=== PATIENT | female | born 1980 | race Caucasian/White ===

== ENCOUNTER 2016-07-21 06:31 | Day surgery (SDC) | payer OTHER, MEDICAID ==
[~2016-07-21] VITALS: Ht 165.1 cm; Wt 81.9 kg
[2016-07-21 07:19] VITALS: Ht 165.1 cm; Wt 81.9 kg
[2016-07-21] MEDS ORDERED: Q VAR (07:25)
[2016-07-21] MEDS ORDERED: PRO AIR (07:25)
[2016-07-21 07:49] VITALS: BP 134/74; PULSE 74; RESP 16
[2016-07-21] MEDS ORDERED: MIDAZOLAM 1 MG/ML 2 ML INJ ONE ×2 (08:08)
[2016-07-21] MEDS ORDERED: FENTAnyl 50 MCG/ML VIAL ONE (08:08)
[2016-07-21 08:34] VITALS: BP 117/76; RESP 20
--- NOTE | 2016-07-21 09:58 | GILP ---
DATE OF PROCEDURE: 07/21/2016 NAME OF PROCEDURE: Esophagogastroduodenoscopy and biopsy. SURGEON: Tejal Burns MD PREOPERATIVE DIAGNOSIS: Abdominal pain. POSTOPERATIVE DIAGNOSES: 1. Bile reflux gastritis. 2. Gastric mucosal biopsies were positive for Helicobacter pylori infection. INDICATION FOR THE PROCEDURE: Ms. More Millard is a 36-year-old female patient who had upper abdo andrew pain, not responding to therapy. The patient was scheduled for endoscopic examination for fur ther evaluation. The procedure and possible complications were well explained to the patient, she understood and cons ented to the procedure. DESCRIPTION OF PROCEDURE: Under the influence of fentanyl and Versed, the gastroscope was carefully introduced into the esophagus and under direct vision, it was advanced to the stomach and through t he pylorus into the duodenal bulb and descending duodenum. FINDINGS: ESOPHAGUS: The mucosa was normal. STOMACH: The patient had bile reflux gastritis. Gastric mucosal biopsies were taken and it was pos itive for Helicobacter pylori infection. DUODENUM: Normal. The patient tolerated the procedure very well and there was no complication from the procedure. At the end of the procedure, she was awake with stable vital signs and she was discharged home to the replaced by [facility] of her family. IMPRESSION: 1. Bile reflux gastritis. 2. Gastric mucosal biopsies were taken for H. pylori test and it was positive for Helicobacter pylo ri infection. PLAN: 1. Zantac 300 mg p.o. b.i.d. for 14 days. 2. Doxycycline 100 mg p.o. b.i.d. for 14 days. 3. Flagyl 500 mg p.o. b.i.d. for 14 days. 4. Pepto-Bismol 2 tablets p.o. q.i.d. for 14 days. Dictated By: TEJAL BURNS MD GD/NTS Conf#: [id number] DID#: [id number] CC: TEJAL BURNS MD;*EndCC*
--- NOTE | 2016-07-22 11:32 | CONS ---
DATE OF ADMISSION: 07/21/2016 DATE OF CONSULTATION: Dear Dr. Guzman: I thank you very much for this kind referral. HISTORY OF PRESENT ILLNESS: Ms. More Millard is a 36-year-old female patient who has been referred to me for further evaluation of abdominal pain. The patient complains of upper abdominal pain, not responding to symptomatic medical therapy. There is no past history of peptic ulcer disease. She is not taking any nonsteroidal anti-inflammatory agents. Her appetite has been good, and there is no history of significant weight loss. The patient is status post cholecystectomy. She does not have any fever, chills or jaundice. The patient was noted to have fatty liver. Patient had blood tests done and they were all normal. Liver enzymes are normal. The patient had abdominal ultrasound and other than fatty liver, no other abnormality was detected. The patient denies any change in the bowel habit or rectal bleeding. She is not a hypertensive or diabetic. She does not have any heart disease. She has history of bronchial asthma. There is no history of kidney disease. SOCIAL HISTORY: She is a nonsmoker. She does not abuse alcohol. FAMILY HISTORY: Negative for gastrointestinal tract neoplasm. ALLERGIES: THERE IS NO HISTORY OF SIGNIFICANT DRUG ALLERGY. MEDICATIONS: 1. ProAir. PHYSICAL EXAMINATION: VITAL SIGNS: She is 5 feet 5 inches tall and she weighs 177 pounds. HEART: Examination of the heart reveals normal first and second heart sounds. LUNGS: Clear. ABDOMEN: Soft without any distention. Liver and spleen are not palpable. There are no masses. There is no focal tenderness. Normal bowel sounds are heard. CENTRAL NERVOUS SYSTEM: Does not reveal any focal neurological deficit. IMPRESSION: 1. Upper abdominal pain, not responding to therapy. 2. Status post cholecystectomy. 3. Fatty liver. 4. The patient had abdominal ultrasound and no other abnormality was detected other than fatty liver. 5. Bronchial asthma. 6. Status post tubal ligation. PLAN 1. Omeprazole 40 mg p.o. q.a.m. 2. Endoscopic examination for further evaluation. The procedure and possible complications are well explained to the patient. She understands and consents to the procedure. I thank you once again. With warmest personal regards, Dictated By: TEJAL VIVEROS/DANILO Conf#: [id number] DID#: [id number] MTDD
== END 2016-07-21 11:14 | disposition home or self-care (01) ==
LOC: GIL 06:31
PROVIDERS: ATTEND Internal Medicine Gastroenterology
DX: K29.60 Other gastritis without bleeding (principal)
CPT/HCPCS: 43239; 87081; J2250; J3010

== ENCOUNTER 2018-10-02 18:39 | Emergency (ER) | payer OTHER ==
[~2018-10-02] VITALS: Ht 165.1 cm; Wt 81.8 kg
[~2018-10-02 18:39] MED LIST: PRO AIR; Q VAR
[2018-10-02 18:42] VITALS: BP 136/96; PULSE 88; RESP 19; Ht 165.1 cm; Wt 81.8 kg
[2018-10-02] MEDS ORDERED: KETOROLAC 30 MG INJ IM STA (19:36)
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
[2018-10-02] MEDS ORDERED: LORAZEPAM 0.5 MG TAB PO ONE (20:00)
[2018-10-02] MEDS ORDERED: ACET325T33 PO (20:56)
[2018-10-02] MEDS ORDERED: BACL10TA PO (20:56)
[2018-10-02] MEDS ORDERED: IBUP-1561 PO (20:56)
== END 2018-10-02 21:05 | disposition home or self-care (01) ==
LOC: FTE 18:39
DX: M54.5 Low back pain (principal); M54.2 Cervicalgia; R10.9 Unspecified abdominal pain
CPT/HCPCS: 72040; 74176; 81003; 81025; J1885; 96372